=== PATIENT | male | born 1995 | race African-American/Black ===

== ENCOUNTER 2018-07-28 20:25 | Emergency (ER) | payer OTHER ==
[2018-07-28 20:46] VITALS: BP 129/83; PULSE 63; TEMP 98.6; BMI 41.2
--- NOTE | 2018-07-28 20:57 | PDOC ---
Rapid Medical Evaluation Chief Complaint: Revisit,Wound Recheck Time Seen by Provider: 07/28/18 20:52 Medical Evaluation: Allergies Allergy/AdvReac Type Severity Reaction Status Date / Time No Known Allergies Allergy Verified 07/28/18 20:46 Vital Signs Temp Pulse Resp BP Pulse Ox 98.6 F 63 18 129/83 100 07/28/18 20:44 07/28/18 20:44 07/28/18 20:44 07/28/18 20:44 07/28/18 20:44 07/28/18 20:53 Pt c/o: left axilla wound and needs packing removed, denies fever, drainage, worse s/s, i & d done here 2 days ago pt on brief exam: packing and wound intact, minimal drainage noted in dressing placed 2 days ago Pt ordered for: none Pt to proceed to the ED Discharge Disposition - Diagnosis Wound check, abscess - Referrals - Patient Instructions - Post Discharge Activity
--- NOTE | 2018-07-28 21:20 | PDOC ---
History of Present Illness - General Chief Complaint: Revisit,Wound Recheck Stated Complaint: REVISIT Time Seen by Provider: 07/28/18 20:52 History Source: Patient Exam Limitations: No Limitations - History of Present Illness Initial Comments: 07/28/18 21:18 23 y/o male here for packing removal. The patient had an I&D performed 2 days ago and states has had no symptoms of increased drainage, fever, or pain to area. Timing/Duration: other Associated Symptoms: reports: denies symptoms Past History - Past Medical History Allergies/Adverse Reactions: Allergies Allergy/AdvReac Type Severity Reaction Status Date / Time No Known Allergies Allergy Verified 07/28/18 20:46 COPD: No - Suicide/Smoking/Psychosocial Hx Smoking History: Never smoked Patient Lives Alone: No Lives with/in: parents Review of Systems - Review of Systems Able to Perform ROS?: No Constitutional: No: Symptoms Reported Musculoskeletal: No: Symptoms Reported Integumentary: No: Symptoms Reported Neurological: No: Symptoms reported *Physical Exam - Vital Signs Last Vital Signs Temp Pulse Resp BP Pulse Ox 98.6 F 63 18 129/83 100 07/28/18 20:44 07/28/18 20:44 07/28/18 20:44 07/28/18 20:44 07/28/18 20:44 - Physical Exam General Appearance: Yes: Nourished, Appropriately Dressed. No: Apparent Distress Integumentary: positive: Other (left axilla with intact packing, mild erythema surrounding opening, no drainage no increased warmth, no edema) Neurologic: positive: Motor Strength 5/5 (ambulatory) Medical Decision Making - Medical Decision Making 07/28/18 21:22 pt here4 for packing removal. no complaints. Wound healing appropiately. Packing removed. Discharge. *DC/Admit/Observation/Transfer Diagnosis at time of Disposition: Wound check, abscess - Discharge Dispostion Disposition: HOME Condition at time of disposition: Improved - Referrals - Patient Instructions Printed Discharge Instructions: DI for Wound Infection Additional Instructions: Continue antibiotics. Change dressing daily x 3 days. Observe for worsening infection ( redness, swelling, increased drainage) - Post Discharge Activity
== END 2018-07-28 21:31 | disposition home or self-care (01) ==
LOC: JERFT 20:25
DX: Z48.817 Encounter for surgical aftercare following surgery on the skin and subcutaneous tissue (principal); Z48.01 Encounter for change or removal of surgical wound dressing
CPT/HCPCS: 99281-25